=== PATIENT | male | born 1985 | race Caucasian/White ===

== ENCOUNTER 2020-05-12 11:28 | Emergency (ER) | payer BC ==
[~2020-05-12] VITALS: Ht 190.5 cm; Wt 122.5 kg
[2020-05-12] MEDS ORDERED: FISH OIL 1,0001 EAC3 PO (11:37)
[2020-05-12] MEDS ORDERED: MULTIVITAMIN1 EACH PO (11:37)
== END 2020-05-12 13:10 | disposition home or self-care (01) ==
LOC: ED 11:28
DX: S61.217A Laceration without foreign body of left little finger without damage to nail, initial encounter (principal); W26.0XXA Contact with knife, initial encounter; Z79.899 Other long term (current) drug therapy; Z91.018 Allergy to other foods
CPT/HCPCS: 12001; 73140; 99282-25